=== PATIENT | female | born 1970 | race American Indian/Alaskan Native ===

== ENCOUNTER 2020-12-16 14:15 | Outpatient (CLI) | payer OTHER ==
--- NOTE | 2020-12-18 13:55 | Magnetic Resonance Report ---
Bilateral breast MRI with and without contrast. History: New diagnosis left breast cancer Procedure: Axial T1 and T2-weighted fat-sat images were obtained precontrast. 18 cc Clariscan was in jected intravenously and serial axial T1-weighted images with fat saturation were obtained postcontra st. 3-D MIP projections, Kinetic analysis and subtraction imaging was utilized to evaluate. A [employer] ed 8 channel breast coil was utilized for image acquisition. Comparison: None available Findings: Background level of enhancement is mild. A mildly indeterminate left axillary lymph node is seen with a small fatty hilum but with the appeara nce of mild cortical thickening. Short axis diameter measures 8 mm. No abnormal bone marrow signal is seen. No significant chest wall enhancement is noted. Right breast: Mild benign-appearing enhancement is noted. No suspicious lesions are seen. Left breast: The known malignant mass with biopsy clip in the upper inner mid to posterior left breas t is seen. This measures 18 mm in diameter and is mildly lobular in appearance. Prominently abnormal enhancement is seen. This lesion lies approximately 9.6 cm from the nipple, 1.8 cm from the skin surf guerrero, and 3.4 cm from the chest wall. No separate areas of suspicious enhancement are seen. Impression: 1. Known malignant mass in the left breast is noted without separate lesions seen in the left breast of concern 2. No suspicious lesions are seen in the right breast 3. Mildly indeterminate left axillary lymph node BIRADS: 6: Known diagnosis breast cancer Signer Name: Luis Gilbert MD Signed: 12/18/2020 1:51 PM Workstation Name: [id number]
== END 2020-12-16 14:16 | disposition home or self-care (01) ==
LOC: SPVIMAG 14:15
PROVIDERS: ATTEND Surgery
DX: C50.212 Malignant neoplasm of upper-inner quadrant of left female breast (principal); R59.0 Localized enlarged lymph nodes
CPT/HCPCS: A9575; C8908; 77049

== ENCOUNTER 2021-01-06 14:11 | Outpatient (CLI) | payer OTHER ==
--- NOTE | 2021-01-06 16:16 | Ultrasound Report ---
ULTRASOUND-GUIDED CORE NEEDLE BIOPSY Left axilla WITH CLIP PLACEMENT INDICATION: 12/16/2020 FINDINGS: Informed consent was obtained. The lymph node in left axilla was identified with ultrasound. The over lying skin was cleansed with chloro prep and local anesthesia was obtained with a 1% lidocaine soluti on. Under ultrasound guidance a 14-gauge spring loaded core biopsy needle was advanced to the lesion. A total of 4 core samples were obtained. A U-shaped biopsy marker was placed to greg the site of the biopsy. Specimen samples were placed in formalin and sent to pathology for analysis. Patient tolerated the procedure well and no immediate complications were identified. A post procedure mammogram was not obtained. IMPRESSION: Technically successful ultrasound guided biopsy of left axillary lymph node with placement of a U-sha ped biopsy marker. An addendum will be added to this report once pathology results are available. Signer Name: Selwyn Mendosa MD Signed: 01/06/2021 4:09 PM Workstation Name: [id number]
== END 2021-01-06 14:12 | disposition home or self-care (01) ==
LOC: SPVWC 14:11
PROVIDERS: ATTEND Surgery
DX: C50.212 Malignant neoplasm of upper-inner quadrant of left female breast (principal); Z79.899 Other long term (current) drug therapy
CPT/HCPCS: 38505; 76942; 88305

== ENCOUNTER 2021-02-16 09:28 | Day surgery (SDC) | payer OTHER ==
[~2021-02-16 09:28] MED LIST: ACETAMINOPHEN 500 MG TAB PO SCH; CELECOXIB 200 MG CAP PO NR; GABAPENTIN 300 MG CAP PO NR; LACTATED RINGERS 1,000 ML IV SCH; MIDAZOLAM 2 MG/2 ML INJ IV NR; SCOPOLAMINE TRANSDERMAL PATCH 72 HR TD NR; ceFAZolin/STERILE WATER 2 GM/20 ML SYRINGE IV NR; fentaNYL 100 MCG/2 ML INJ IV PRN
[2021-02-16] MEDS ORDERED: dexAMETHasone 4 MG/ML VIAL ONE (09:33)
[2021-02-16] MEDS ORDERED: LIDOCAINE (1%) 10 MG/1 ML VIAL 20 ML MDV ONE (09:33)
[2021-02-16] MEDS ORDERED: BUPIVACAINE/PF (0.5%) 5 MG/1 ML 30 ML VIAL INFILTRATI ONE (09:34)
[2021-02-16] MEDS ORDERED: oxyCODONE /ACETAMINOPHEN 5-325MG TAB PO PRN (09:41)
--- NOTE | 2021-02-16 09:53 | Anesthesia Consultation ---
Anesthesia Consult and Med Hx - Airway Anesthetic Teeth Evaluation: Good ROM Head & Neck: Adequate Mental/Hyoid Distance: Adequate Mallampati Class: Class II Intubation Access Assessment: Probably Good - Pre-Operative Health Status ASA Pre-Surgery Classification: ASA2 Proposed Anesthetic Plan: General Nerve Block: PECS II - Pulmonary Hx Smoking: No Hx Respiratory Symptoms: No - Cardiovascular System Hx Hypertension: No Hx Heart Attack/AMI: No - Central Nervous System CVA: No Hx Back Pain: Yes (fibromyalgia) - Endocrine Hx Renal Disease: No Hx Liver Disease: No Hx Insulin Dependent Diabetes: No Hx Non-Insulin Dependent Diabetes: No Hx Thyroid Disease: No - Other Systems Hx Cancer: Yes (breast ca) - Additional Comments Anesthesia Medical History Comments: No hx anesthetic complications.
--- NOTE | 2021-02-16 09:57 | Anesthesia Day of Surgery ---
Anesthesia Day of Surgery - Day of Surgery Patient Examined: Yes Patient H&P Reviewed: Yes Patient is NPO: Yes
[2021-02-16] MEDS ORDERED: ONDANSETRON 4 MG/2 ML INJ IV PRN (10:00)
[2021-02-16] MEDS ORDERED: LIDOCAINE MPF (2%) 20 MG/1 ML VIAL 5 ML ONE (10:14)
[2021-02-16] MEDS ORDERED: propofoL 200 MG/20 ML VIAL IV ONE (10:14)
[2021-02-16] MEDS ORDERED: SODIUM CHLORIDE P/F VIAL 10 ML 10 ML ONE (10:23)
[2021-02-16] MEDS ORDERED: METHYLENE BLUE 50 MG/10 ML AMP ONE (10:23)
[2021-02-16] MEDS ORDERED: METHYLENE BLUE 50 MG/10 ML AMP IV ONE (12:00)
[2021-02-16] MEDS ORDERED: SODIUM CHLORIDE 0.9% P/F 10 ML VIAL IV ONE (12:00)
[2021-02-16] MEDS ORDERED: NEOMY 40 MG/POLYMYXIN B 200,000 UNITS/ML (GU) AMPULE IR ONE ×2 (12:43→12:52)
[2021-02-16] MEDS ORDERED: BACITRACIN ZINC OINT 28.4 GM TP ONE ×2 (12:43→14:30)
[2021-02-16] MEDS ORDERED: WATER FOR IRRIG STERILE 1,000 ML BOTTLE IR ONE (12:52)
[2021-02-16] MEDS ORDERED: LACTATED RINGERS 1,000 ML ONE (13:15)
[2021-02-16] MEDS ORDERED: ONDANSETRON 4 MG/2 ML INJ ONE (13:15)
[2021-02-16] MEDS ORDERED: dexAMETHasone 20 MG/5 ML VIAL ONE (14:49)
--- NOTE | 2021-02-16 14:51 | Operative Report ---
Operative Report Operative Report: Operative Report: February 16, 2021 Preoperative diagnosis: Left breast cancer of the upper inner quadrant Postoperative diagnosis: Same Procedure: Left partial mastectomy of the upper inner quadrant with SLNB and placement of BioZorb marker Surgeon: Kenzie Deal MD Engineering Illustrator: Sharee Israel MD Anesthesia: General Findings: Left breast mass and clip present within radiograph specimen; x2 SLNs; placement of BioZorb marker 2x3 cm Lot [id number] Complications: None EBL: Less than 50 cc Disposition: PACU in good condition Indications for operative procedure: This is a 50 year old lady with newly diagnosed left breast cancer of the upper inner quadrant, Stage I [id number] triple negative (11:00 position 7 cm FN) and BRCA2 positive gene mutation. Recommendations are to proceed with a bilateral mastectomy given BRCA2 positive gene mutation and she wished to proceed with breast conservation only. She understands her increase risk for ipsilateral and contralateral breast cancer as well as distance disease. She understands the role of adjuvant radiation therapy with breast conservation. She wished to proceed with the above procedure. Procedure in detail: Anesthesia placed left pectoral block. Patient was then taken to the operating room. Gen. anesthesia was administered. The left nipple was injected with radioisotope and 1 cc of methylene blue dye. Left breast and axilla were prepped and draped in the normal sterile operative fashion. Timeout was performed. Ultrasound was used to identify the location of known breast malignancy at 11:00 position 7 cm FN. The breast was marked for incision using the ultrasound. Gamma probe was inserted into the axilla. The area of hot spot was identified. A left axillary incision was made with a 15 blade knife with dissection taken down to the subcutaneous tissues. The axillary fascia was opened with the Bovie cautery. 2 SLNs were identified and dissected free. All remaining counts were less than 10% of the highest count. Lymph node was sent to pathology for permanent processing. Hemostasis was obtained in the left axillary cavity. Axillary cavity was appropriately irrigated and suctioned. Hemostasis was noted. Axillary fascia was approximated and closed using interrupted 3-0 Vicryl and the skin brought together and closed using a running 4-0 Monocryl followed by dermabond. Attention was then taken towards the left breast. At periareolar breast incision around 12:00 position was made with a 15 blade knife and dissection taken down to subcutaneous tissues. First began raising of the superior/anterior flap with dissection taken superiorly past the area of known maglignancy and then taken down to the pectoralis muscle, followed by raising of the inferior flap, medial flap and lateral flap with all flaps taken past the area of known malignancy and then posteriorly down to the pectoralis muscle. The breast area of concern was appropriately removed posteriorly from the pectoralis muscle with the aid of the Bovie cautery. Ultrasound was used with margins appearing adequate and no additional suspicious findings were present. Specimen was marked and then sent to pathology and radiology; radiograph specimen with mass and clip present. Breast cavity was irrigated and hemostasis was obtained. Then proceeded with placement of BioZorb marker lot [id number] 2x3 cm. The posterior deep breast tissues were then mobilized to approximate and cover the area of the defect of at least 5 cm. The posterior deep breast tissues were approximated and closed using interrupted 3-0 Vicryl. The BioZorb of 2x3 centimeters was then sutured into place using interrupted 2-0 PDS, placing 4 sutures. Anterior breast tissue were then approximated and closed using interrupted 3-0 Vicryl. The BioZorb was not easily palpable. The subcutaneous tissues were then approximated and closed using interrupted 3-0 Vicryl followed by closing of the skin with a running 4-0 Monocryl and skin affix. The patient tolerated surgery very well and she was awaken from anesthesia without any complication and transported to PACU in good condition.
--- NOTE | 2021-02-16 14:54 | Short Stay Summary ---
Short Stay Documentation Date of service: 02/16/21 - History H&P: obtained from office - Allergies and Medications Current Medications: Allergies No Known Allergies Allergy (Verified 01/27/21 12:19) Home Medications Medication Instructions Recorded Confirmed Last Taken Type Ibuprofen [Motrin 800 MG tab] 800 mg PO Q8HR PRN #12 tablet 02/16/21 Unknown Rx Active Medications Acetaminophen (Acetaminophen 500 Mg Tab) 1,000 mg PO PREOP OLIVIA Last Admin: 02/16/21 09:50 Dose: 1,000 mg Documented by: Cefazolin Sodium (Cefazolin/Sterile Water 2 Gm/20 Ml Syringe) 2 gm IV PREOP NR Stop: 02/16/21 20:00 Celecoxib (Celecoxib 200 Mg Cap) 200 mg PO PREOP NR Stop: 02/16/21 23:59 Last Admin: 02/16/21 09:50 Dose: 200 mg Documented by: Fentanyl (Fentanyl 100 Mcg/2 Ml Inj) 100 mcg IV ONCE PRN PRN Reason: sedation for nerve block Last Admin: 02/16/21 10:04 Dose: 100 mcg Documented by: Fentanyl (Fentanyl 100 Mcg/2 Ml Inj) 50 mcg IV Q5MIN PRN PRN Reason: Pain , Severe (7-10) Stop: 02/16/21 23:00 Gabapentin (Gabapentin 300 Mg Cap) 300 mg PO PREOP NR Stop: 02/16/21 23:59 Last Admin: 02/16/21 09:50 Dose: 300 mg Documented by: Lactated Ringer's (Lactated Ringers) 1,000 mls @ 100 mls/hr IV DIRECT OLIVIA Stop: 02/16/21 23:59 Last Admin: 02/16/21 09:50 Dose: 100 mls/hr Documented by: Midazolam HCl (Midazolam 2 Mg/2 Ml Inj) 2 mg IV PREOP NR Stop: 02/16/21 23:59 Last Admin: 02/16/21 10:04 Dose: 2 mg Documented by: Ondansetron HCl (Ondansetron 4 Mg/2 Ml Inj) 4 mg IV ONCE PRN PRN Reason: Nausea And Vomiting Stop: 02/16/21 16:00 Oxycodone/Acetaminophen (Oxycodone /Acetaminophen 5-325mg Tab) 1 tab PO ONCE PRN PRN Reason: Pain, Moderate (4-6) Stop: 02/16/21 16:00 Scopolamine (Scopolamine Transdermal Patch 72 Hr) 1 each TD PREOP NR Stop: 02/16/21 23:59 Last Admin: 02/16/21 09:50 Dose: 1 each Documented by: - Brief post op/procedure progress note Date of procedure: 02/16/21 Pre-op diagnosis: Left breast cancer of UIQ Post-op diagnosis: same Procedure: Left partial mastectomy of UIQ and biozorb placement Anesthesia: GETA Findings: left breast cancer at 11:00 position 7 cm FN. x2 SLNS; 2x3 cm biozorb placed Surgeon: BOB EDDY Estimated blood loss: minimal Pathology: list Specimen disposition: to lab Condition: stable - Disposition Condition at discharge: Good Disposition: 01 HOME / SELF CARE / HOMELESS Short Stay Discharge Plan Activity: other (no heavy lifting) Diet: regular Wound: keep clean and dry (wear breast binder; may shower in 48 hours; no baths, pools or lakes; apply bacitracin twice daily to incision) Follow up with: MALLY WALTERS MD [Primary Care Provider] - 7 Days Prescriptions: cephALEXin [Keflex] 500 mg PO Q12HR #14 cap Ibuprofen [Motrin 800 MG tab] 800 mg PO Q8HR PRN #12 tablet PRN Reason: Pain , Severe (7-10)
[2021-02-16] MEDS: fentaNYL 100 MCG/2 ML INJ IV PRN ×2 (15:45→15:50)
--- NOTE | 2021-02-16 16:10 | Post Anesthesia Evaluation ---
- Post Anesthesia Evaluation Patient Participated: Yes Airway Patent: Yes Stable Respiratory Function: Yes Nausea/Vomiting: No Temp > 96.8F: Yes Pain Manageable: Yes Adequeate Hydration: Yes Anesthesia Complications: No
[2021-02-16 18:52] VITALS: BP 136/81
--- NOTE | 2021-02-17 08:30 | Mammography Report ---
BREAST SPECIMEN RADIOGRAPH HISTORY: Lumpectomy FINDINGS/IMPRESSION: The submitted radiograph or radiographs demonstrate(s) the presence of a biopsy marker within soft ti ssue mass, as expected. No localization wire present. Signer Name: Dior Moreau MD Signed: 02/17/2021 8:26 AM Workstation Name: [id number]
== END 2021-02-16 09:29 | disposition home or self-care (01) ==
LOC: OR 09:28
PROVIDERS: ATTEND Surgery
DX: C50.212 Malignant neoplasm of upper-inner quadrant of left female breast (principal); K21.9 Gastro-esophageal reflux disease without esophagitis; M19.90 Unspecified osteoarthritis, unspecified site; Z79.899 Other long term (current) drug therapy; Z98.890 Other specified postprocedural states; Z20.822 Contact with and (suspected) exposure to COVID-19
CPT/HCPCS: 19302; 36415; 64450; 76098; 78800; 84703; 88307; 88342; A4648; A9541; J0690; J1100; J2250; J2405; J2704; J3010; J7120; Q9968; U0003; 88333